=== PATIENT | male | born 1950 | race Caucasian/White ===

== ENCOUNTER → 2021-08-25 13:54 | Outpatient (BNVA) | payer SELFPAY | PROVIDERS: PCP Nurse Practitioner Family; Visit Provider Nurse Practitioner Family ==

== ENCOUNTER → 2021-12-01 10:55 | Outpatient (BNVA) | payer MEDICARE, OTHER, SELFPAY | PROVIDERS: PCP Nurse Practitioner Family; Visit Provider Nurse Practitioner Family | DX: G20 Parkinson's disease (principal); R44.3 Hallucinations, unspecified | CPT/HCPCS: 99212 ==

== ENCOUNTER → 2022-03-07 11:27 | Outpatient (BNVA) | payer MEDICARE, OTHER, SELFPAY | PROVIDERS: PCP Nurse Practitioner Family; Visit Provider Nurse Practitioner Family | DX: G20 Parkinson's disease (principal); R44.3 Hallucinations, unspecified; Z79.82 Long term (current) use of aspirin; Z79.899 Other long term (current) drug therapy | CPT/HCPCS: 99212 ==

== ENCOUNTER → 2022-07-27 12:52 | Outpatient (BNVA) | payer MEDICARE, OTHER, SELFPAY | PROVIDERS: PCP Nurse Practitioner Family; Visit Provider Nurse Practitioner Family | DX: G20 Parkinson's disease (principal); R44.3 Hallucinations, unspecified; G45.9 Transient cerebral ischemic attack, unspecified | CPT/HCPCS: 99212 ==

== ENCOUNTER → 2022-11-16 12:58 | Outpatient (BNVA) | payer MEDICARE, OTHER, SELFPAY | PROVIDERS: PCP Nurse Practitioner Family; Visit Provider Nurse Practitioner Family | DX: G20 Parkinson's disease (principal); N39.0 Urinary tract infection, site not specified; R55 Syncope and collapse; R45.1 Restlessness and agitation | CPT/HCPCS: 99212 ==

== ENCOUNTER 2022-12-07 13:00 | Outpatient (REF) | payer MEDICARE, OTHER, SELFPAY ==
--- NOTE | 2022-12-07 13:04 | EEG_ITS ---
This is a 16 channel EEG with an EKG lead. The patient is reported awake during the tracing. Background EEG rhythm is 6-8 hertz, 5-30 microvolt posteriorly and lower amplitude fast anteriorly. Photic stimulation does not produce any significant driving. Hypoventilation is not performed. Cardiac lead does not reveal any significant abnormality. At least 1 left hemispheric sharp wave was noted. IMPRESSION: Abnormal EEG suggestive of left hemispheric irritability, which suggested a tendency for partial or complex partial seizure disorder. MD ARACELY Hernandez/TRACEY / [id number]
== END 2022-12-07 13:01 | disposition home or self-care (01) ==
LOC: HO.NEURO 13:00
PROVIDERS: PCP Nurse Practitioner Family; Visit Provider Nurse Practitioner Family
DX: R55 Syncope and collapse (principal); G45.9 Transient cerebral ischemic attack, unspecified
CPT/HCPCS: 95816

== ENCOUNTER 2023-02-20 12:57 | Outpatient (AMB) | payer MEDICARE, OTHER, SELFPAY ==
[2023-02-20 12:59] VITALS: BP 112/76; PULSE 77; O2SAT 98; BMI 25.0
--- NOTE | 2023-02-20 12:59 | MHC.OFFVIS ---
Intake Vital Signs 02/20/23 12:59 Height 6 ft 1 in Weight 189 lb 8 oz BMI 25.0 BP 112/76 Blood Pressure Location Rt brachial Position Sitting Pulse 77 Pulse Source Pulse Oximeter Pulse Oximetry (%) 98 Oxygen Delivery Method Room Air Intake Visit Reasons: 3m follow up Parkinson's - LVM Intake Note: Pt presents as a 3 month f/u for Parkinsons. pt's states he's sleeping more, and just the normal decline. Extended Day Teacher Required: No Allergies No Known Allergies Allergy (Verified 02/20/23 13:05) Medication List - Last Reconciled 02/20/23 by ANETA Zhang ascorbate calcium (vitamin C) 500 mg PO DAILY aspirin 325 mg PO DAILY atorvastatin 20 mg PO DAILY carbidopa-levodopa 23.75-95 mg ER (Rytary) 3 caps PO TID 90 days cholecalciferol (vitamin D3) 50 mcg PO DAILY clonazepam 0.5 mg PO BEDTIME PRN d-mannose 1,000 mg PO BID docusate sodium (Stool Softener) 100 mg PO BID lactulose 10 - 20 grams (15 - 30 mL) PO BEDTIME PRN 30 days melatonin 7.5 mg PO memantine 28 mg PO DAILY 90 days nitrofurantoin macrocrystal 100 mg PO DAILY pantoprazole 40 mg PO DAILY pimavanserin (Nuplazid) 34 mg PO DAILY 30 days polyethylene glycol 3350 (Miralax) 17 grams PO DAILY quetiapine (Seroquel) 25 mg PO BID 90 days trazodone 100 mg PO DAILY HPI HPI Comments History of Present Illness Details 72-yr-old male presents for f/u visit, accompanied by his , who provides most of history. Pt had an interval hospital admission- following an episode of brief syncope a/w eyes rolling back- thought to be d/t orthostatic hypotension. Pt's notes that these episodes started after pt started Tamsulosin- and this was stopped in the hospital. He has not had any episodes since. He has also been treated for several UTIs- extended course of keflex, then cipro, now nitrofurantoin for UTI prevention. reports that PVR was normal- even off the tamsulosin. Aoril 2021 IMPRESSION:? Abnormal EEG suggestive of left hemispheric irritability, which suggested a tendency for partial or complex partial seizure disorder. ADL's: Needs max assist Swallowing: No issues, not eating as much Cough: None Drooling: None Orthostatic lightheadedness: None since hospitalization. He is drinking a bit better, Constipation: Has been having more diarhea since taking the ABT- but more constipated today. Freezing: Stiffness: Stiff Tremor: Not much Falls: He had an episode where he tried to get up on his own, and found him sitting next to his bed. Now has 2 half rails. Hallucinations: More constant- pt is less bothered by them but sometimes they can be bothersome- such as 30 people being in the BR w/ him. Memory: Poor Sleep: He is sleeping ok w/ quetiapine 1.5 tabs qhs. Exercise: Walking as able in around the house. [facility] Medical History GI bleed Hernia Surgical History History of appendectomy History of knee replacement Family History Father Heart disease Parkinsons Mother Cancer Social History (Updated 02/20/23 @ 13:09 by Britt Benavides CMA) Alcohol intake: current Alcohol intake frequency: former alcohol drinker Patient Tobacco Use Status: Never used Tobacco Review of Systems Const All systems reviewed & are unremarkable except as noted in HPI and below Physical Exam Vital Signs: Last Vital Signs Pulse 77 02/20/23 12:59 BP 112/76 02/20/23 12:59 Pulse Ox 98 02/20/23 12:59 Oxygen Delivery Method Room Air 02/20/23 12:59 BMI result Body Mass Index 25.0 Const General: cooperative and no acute distress Resp Effort & Inspection: normal respiratory effort and able to speak in complete sentences Neuro Other: Expression:? Decreased expression and blink Voice:? Soft voice Tremor:? No tremor noted Dyskinesia:? None observed Movement:? BUE and BLE FFM and foot taps bradykinetic- more so on left, more difficulty follwoing instructions for LUE.. Tone: BUE rigidity. Gait:? Pt sitting w/ slight stoop in w/c Psych:? Pleasant affect, cooperative. Cognition: Alert, responsive, confabulation. Assessment & Plan Assessment & Plan (1) Parkinson disease: Code(s): G20 - Parkinson's disease (2) Hallucinations: Code(s): R44.3 - Hallucinations, unspecified (3) Syncope: Code(s): R55 - Syncope and collapse Plan Reviewed EEG- suggestive of left temporal irritability. However, pt has not had any further syncopal episodes since stopping Tamsulosin. Thus I suspect OH is the likely cause. Continue increased fluids. Consider BP support or AED if episodes reoccur. Continue Rytary 23.75-95mg- 3 caps qam,?2pm, HS. Continue Trazodone 100-150mg qhs. Continue Nuplazid 34mg qd. Continue Quetiapine 25 mg bid and 12.5mg qd prn. Continue Namneda XR 28mg qd. Continue Colace and Miralax prn. Lactulose prn no BM in > 3 days. Continue ASA. Continue socialization, cognitively stimulating activities. Continue supportive care. ? f/u in 3 months or sooner per new/worsening s/s. Medications: New d-mannose 1,000 mg orally daily; Coding Level of Care Code Est Pt Level 4 (29090) Diagnoses Parkinson disease G20 Hallucinations R44.3 Syncope R55
== END 2023-02-20 14:02 | disposition home or self-care (01) ==
LOC: HO.HSMS 12:57
PROVIDERS: PCP Nurse Practitioner Family; Visit Provider Nurse Practitioner Family
DX: G20 Parkinson's disease (principal); R44.3 Hallucinations, unspecified; R55 Syncope and collapse
CPT/HCPCS: 99214

== ENCOUNTER → 2023-02-20 12:57 | Outpatient (BNVA) | payer MEDICARE, OTHER, SELFPAY | PROVIDERS: PCP Nurse Practitioner Family; Visit Provider Nurse Practitioner Family | DX: G20 Parkinson's disease (principal); R44.3 Hallucinations, unspecified; R55 Syncope and collapse | CPT/HCPCS: 99212 ==

== ENCOUNTER 2023-05-31 13:25 | Outpatient (AMB) | payer MEDICARE, OTHER, SELFPAY ==
--- NOTE | 2023-05-31 13:29 | A.OFFVIS_ITS ---
Intake Vital Signs 05/31/23 13:31 Height 6 ft 1 in Weight 183 lb BMI 24.1 BP 98/60 Blood Pressure Location Lt brachial Position Sitting Pulse Source Pulse Oximeter Pulse Oximetry (%) 94 Oxygen Delivery Method Room Air Intake Visit Reasons: 3m follow up Parkinson's/confirmed Intake Note: Patient presents today for a 3 month follow up for Hallucination. Patient is here with his Violeta Garibay and is the one answering questions. Patient's states there has been no change. Patient is having PT and OT at home. Allergies No Known Allergies Allergy (Verified 05/31/23 13:38) HPI HPI Comments History of Present Illness Details 72-yr-old male presents for f/u visit, a ccompanied by . No interval UTIs- on ABT prophylaxis. ADL's: Needing more assist Swallowing: Sometimes may cough after taking a drink Drooling: None Orthostatic lightheadedness: He is having less OH s/s since starting Midodrine 2.5mg qam, and will increase to 5mg qam today- PCP is managing. Constipation: More prone for looser stools Freezing: Sometimes Stiffness: Some stiffness Tremor: At times hand tremors may be increased Falls: No interval falls Hallucinations: Continues Memory: Poor Sleep: Sleeping ok. Exercise: Currently working w/ PT and OT. [facility] Medical History GI bleed Hernia Surgical History History of appendectomy History of knee replacement Family History Father Heart disease Parkinsons Mother Cancer Social History Alcohol intake: current Alcohol intake frequency: former alcohol drinker Patient Tobacco Use Status: Never used Tobacco Review of Systems Const All systems reviewed & are unremarkable except as noted in HPI and below Physical Exam Vital Signs: Last Vital Signs BP 98/60 05/31/23 13:31 Pulse Ox 94 05/31/23 13:31 Oxygen Delivery Method Room Air 05/31/23 13:31 BMI result Body Mass Index 24.1 Const General: cooperative and no acute distress Resp Effort & Inspection: normal respiratory effort and able to speak in complete sentences Neuro Other: Expression:? Decreased expression and blink Voice:? Soft voice Tremor:? No tremor noted Dyskinesia:? None observed Movement:? BUE and BLE FFM and foot taps bradykinetic Tone: BUE rigidity. Gait:? Pt sitting in w/c- less stoop today Psych:? Pleasant affect, cooperative. Cognition: Alert, responsive, confabulation. Assessment & Plan Assessment & Plan (1) Parkinson's disease without dyskinesia: Code(s): G20.A1 - Parkinson's disease without dyskinesia, without mention of fluctuations (2) Hallucinations: Code(s): R44.3 - Hallucinations, unspecified (3) Syncope: Code(s): R55 - Syncope and collapse Plan For OH s/s: Previous EEG- suggestive of left temporal irritability. However, pt has not had any further syncopal episodes since stopping Tamsulosin. Thus I suspect OH is the likely cause. Continue increased fluids. Continue Midodrine 2.5-5mg qam. Continue to sleep w/ HOB elevated. Continue to monitor BP. Consider AED if episodes reoccur. Continue Rytary 23.75-95mg- 3 caps qam,?2pm, HS. Continue Trazodone 100-150mg qhs. Continue Nuplazid 34mg qd. Continue Quetiapine 25 mg bid and 12.5mg qd prn. Continue Namenda XR 28mg qd. Continue Colace and Miralax prn. Lactulose prn no BM in > 3 days. Continue ASA. Continue socialization, cognitively stimulating activities. Continue PT/OT exercises. Pt would benefit from using a Platform U-step Neuro Walker as he is at significant risk of falling using a standard walker, and this risk would be lessened by use of a Platform U-step Neuro Walker w/ laser. Continue supportive care. ? f/u in 3 months or sooner per new/worsening s/s. Coding Level of Care Code Est Pt Level 4 (57600) Diagnoses Parkinson's disease without dyskinesia G20.A1 Hallucinations R44.3 Syncope R55
[2023-05-31 13:31] VITALS: BP 98/60; O2SAT 94; BMI 24.1
== END 2023-05-31 14:36 | disposition home or self-care (01) ==
PROVIDERS: PCP Nurse Practitioner Family; Visit Provider Nurse Practitioner Family
DX: G20.A1 Parkinson's disease without dyskinesia, without mention of fluctuations (principal); R44.3 Hallucinations, unspecified; R55 Syncope and collapse
CPT/HCPCS: 99214

== ENCOUNTER → 2023-05-31 13:25 | Outpatient (BNVA) | payer MEDICARE, OTHER, SELFPAY | PROVIDERS: PCP Nurse Practitioner Family; Visit Provider Nurse Practitioner Family | DX: G20.A1 Parkinson's disease without dyskinesia, without mention of fluctuations (principal); R44.3 Hallucinations, unspecified; R55 Syncope and collapse | CPT/HCPCS: 99212 ==

== ENCOUNTER 2023-07-24 11:36 | Outpatient (AMB) | payer MEDICARE, OTHER, SELFPAY ==
[2023-07-24 11:43] VITALS: BP 120/60; PULSE 67; BMI 24.7
--- NOTE | 2023-07-24 11:43 | A.OFFVIS_ITS ---
Intake Vital Signs 07/24/23 11:43 Height 6 ft 1 in Weight 187 lb BMI 24.7 BP 120/60 Blood Pressure Location Lt brachial Position Sitting Pulse 67 Intake Visit Reasons: CLIENT RELATIONSHIP MANAGER/ Albertina Dickens/ Erasmo PCP/abn ekg Intake Note: New patient abnormal ekg orthostatic HTN unable to do orthostatic bp unable to stand Buttonhole Maker Hand Required: No Allergies No Known Allergies Allergy (Verified 05/31/23 13:38) Medication List - Last Reconciled 07/24/23 by Too Palmer MD ascorbate calcium (vitamin C) 500 mg PO DAILY aspirin 325 mg PO DAILY atorvastatin 20 mg PO DAILY carbidopa-levodopa 23.75-95 mg ER (Rytary) 3 caps PO TID 90 days cholecalciferol (vitamin D3) 50 mcg PO DAILY clonazepam 0.5 mg PO BEDTIME PRN d-mannose 1,000 mg PO BID docusate sodium (Stool Softener) 100 mg PO BID droxidopa 100 mg PO TID 30 days lactulose 10 - 20 grams (15 - 30 mL) PO BEDTIME PRN 30 days melatonin 7.5 mg PO memantine 28 mg PO DAILY 90 days midodrine 5 mg PO ONCE nitrofurantoin macrocrystal 100 mg PO DAILY pantoprazole 40 mg PO DAILY pimavanserin (Nuplazid) 34 mg PO DAILY 30 days polyethylene glycol 3350 (Miralax) 17 grams PO DAILY quetiapine (Seroquel) 25 mg PO BID 90 days trazodone 100 mg PO DAILY HPI HPI Comments History of Present Illness Details Thank you for referring Omi in cardiology consultation today for abnormal EKG. EKG shows right bundle-branch block and with ST T wave abnormalities which could suggest re pros a escobedo abnormality related to LVH. This right bundle-branch block was noted on EKG from 2019 as well and is not a new finding. Patient also has advanced Parkinson's disease with dementia. He has some behavioral disorder. Patient is accompanied by his as well as his daughter. History is mostly provided with the who has been taking care of the patient closely. Patient 2018 was admitted to [facility] with TIA and that time workup at shown mild carotid disease. He subsequent echocardiogram and subsequent had a implantable loop recorder placement which was in him for about a year and half as per the . He was subsequently diagnosed with paroxysmal atrial fibrillation and a decision was made not to put him on oral anticoagulation therapy due to fear of risk of falls. Patient is on full-dose aspirin therapy. Patient subsequently comes for follow-up today. Has developed significant orthostatic hypertension and syncopal episodes related to it. notices that sometimes when he is upright or changes position he would flutter his eyes and would have a blank stare in she would know that he was about to pass out. She would then try to sit back down on a recliner and/or push against the wall to clinic slight down to the floor. However despite the sometimes he has passed out. He had another episode of TIA like event where noticed that the right side of the face was drooping and brought him to [facility], workup there was negative. He has also had EEG done which shows a irritable focus. He has not had any seizure-like activity as per the . He is currently on midodrine twice a day for his orthostatic hypertension. Noted extensive blood pressure recording done by the which has shown patient has slightly elevated blood pressure when he is in bed and blood pressure can drop up to 50 points when he is in a recliner. Blood pressure is highly variable. Patient has been trying to increase fluid intake. There is no clear heart failure symptoms. [facility] Medical History GI bleed Hernia Surgical History History of appendectomy History of knee replacement Family History Father Heart disease Parkinsons Mother Cancer Social History Alcohol intake: current Alcohol intake frequency: former alcohol drinker Patient Tobacco Use Status: Never used Tobacco Review of Systems Const Denies chills, Denies daytime sleepiness, Denies fatigue, Denies fever(s), Denies frequent falls, Denies poor appetite, Denies snoring, Denies stops breathing during sleep, Denies weakness, Denies weight gain and Denies weight loss Eyes Denies loss of vision ENT Denies dizziness and Denies hearing loss Card Denies chest pain, Denies claudication, Denies leg edema, Denies lightheadedness, Denies palpitations, Denies dyspnea, Denies dyspnea on exertion and Denies orthopnea Resp Denies cough, Denies excessive phlegm production, Denies dyspnea, Denies dyspnea on exertion, Denies snoring and Denies wheezing GI Denies abdominal pain, Denies hematochezia, Denies change in bowel habits, Denies nausea and Denies vomiting Denies dysuria and Denies urinary frequency Musc Denies arthralgias, Denies muscle weakness, Denies numbness and Denies other (frequent falls) Skin/Breast Denies nail changes and Denies rash Neuro Denies Abnormal speech present, Denies dizziness, Denies frequent falls, Denies loss of vision, Denies memory loss, Denies numbness and Denies weakness Psych Denies depression and Denies memory loss Endo Denies fatigue and Denies palpitations John/Lymph Reports easy bruising and Reports other (anemia) Aller/Immun Denies wheezing Physical Exam Vital Signs: Last Vital Signs Pulse 67 07/24/23 11:43 BP 120/60 07/24/23 11:43 BMI result Body Mass Index 24.7 Const General: cooperative, comfortable, no acute distress, alert and awake Nutritional Appearance: average body habitus Limitations: wheelchair HEENT Head: Yes normocephalic and Yes atraumatic Neck Neck: Yes trachea midline, Yes supple and Yes no JVD Resp Effort & Inspection: normal respiratory effort Auscultation: clear to auscultation bilaterally Cardio Jugular venous distension: no JVD Palpation: normal PMI Rate: regular rate Rhythm: regular rhythm Heart sounds: S1 normal heart sound present, S2 normal heart sound present, no click, no gallops, no murmurs and no rubs GI Auscultation: normal bowel sounds Skin General skin exam: no rashes or lesions noted Neuro General: moves all extremities Speech: No Abnormal speech present Extrem General: Yes no clubbing, cyanosis or edema Office Procedures EKG Details: EKG shows normal sinus rhythm with right bundle-branch block with T-wave changes in inferior lead which which suggests repolarization abnormality [id number], Complete Assessment & Plan Assessment & Plan (1) Abnormal electrocardiogram [ECG] [EKG]: Code(s): R94.31 - Abnormal electrocardiogram [ECG] [EKG] Plan: Patient with prior history of right bundle-branch block as well as persistent right bundle-branch block on EKG today with multiple risk factors. Would suggest an echocardiogram to assess for LV systolic and diastolic function as well as evaluate for LVH. 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 He does have significant labile blood pressure and has evidence of orthostatic syncope in the past. The tends to recognize symptoms when he is having these episodes and tries to correct position. Advise if possible to try to lay him down. However she says that this is not always possible. He is currently on midodrine therapy in this can be maximized but there is a plan to switch him to Northera, which is medication studied for this particular condition and agree with it. However there is likelihood of having supine hypertension with this. Advise to continue monitor blood pressure aggressively especially supine blood pressure. If the blood pressure at nighttime when supine a elevated consider adding short-acting medicine such as Isordil or hydralazine prior to sleep to reduce risk of supine hypertension. Maintain adequate oral hydration. Orthostatic precautions discussed. Patient is already sleeping in a semi reclining position in the hosp ital bed at home. This is a very difficult clinical situation treatment was discussed with the and they understand and agree. (3) Paroxysmal atrial fibrillation: Code(s): I48.0 - Paroxysmal atrial fibrillation Plan: reports history of paroxysmal atrial fibrillation, based on implantable loop recorder finding. Will review the findings. If he in fact has atrial fibrillation should consider switching him to oral anticoagulation therapy with Eliquis. The benefits and risks were discussed with the . They will discuss this with you as well as the PCP. Will follow in the clinic if need be. Thank you for allowing me to partake in his care Orders: Orders CA echo transthoracic complete Today R94.31 - Abnormal electrocardiogram [ECG] [EKG] Coding Level of Care Code New Pt Level 4 (54976) Diagnoses Abnormal electrocardiogram [ECG] [EKG] R94.31 Orthostatic hypotension I95.1 Paroxysmal atrial fibrillation I48.0 CPT Codes EKG - CPT: 35521-[id number], Complete ([id number])
== END 2023-07-24 12:47 | disposition home or self-care (01) ==
PROVIDERS: PCP Nurse Practitioner Family; Visit Provider Internal Medicine Cardiovascular Disease
DX: R94.31 Abnormal electrocardiogram [ECG] [EKG] (principal); I95.1 Orthostatic hypotension; I48.0 Paroxysmal atrial fibrillation
CPT/HCPCS: 93010; 99204

== ENCOUNTER → 2023-07-24 11:36 | Outpatient (BNVA) | payer MEDICARE, OTHER, SELFPAY | PROVIDERS: PCP Nurse Practitioner Family; Visit Provider Internal Medicine Cardiovascular Disease | DX: R94.31 Abnormal electrocardiogram [ECG] [EKG] (principal); I95.1 Orthostatic hypotension; I48.0 Paroxysmal atrial fibrillation | CPT/HCPCS: 93005; 99202 ==

== ENCOUNTER → 2023-08-16 13:01 | Outpatient (REF) | payer MEDICARE, OTHER, SELFPAY ==
--- NOTE | 2023-08-16 13:05 | HM_ITS ---
* Total monitoring time 3 days. * Underlying rhythm is sinus with an average rate of 68/Min range 51 to 84/Min. * Occasional supraventricular ectopy burden of 1.8%. * Rare ventricular ectopy. * No significant pauses or AV blocks. * No patient markers or events in diary. MTDD
== END ==
LOC: HO.CARD 13:01
PROVIDERS: Visit Provider Nurse Practitioner Family
DX: I45.10 Unspecified right bundle-branch block (principal); R94.31 Abnormal electrocardiogram [ECG] [EKG]; R55 Syncope and collapse; G20.A1 Parkinson's disease without dyskinesia, without mention of fluctuations; R41.82 Altered mental status, unspecified; Z86.73 Personal history of transient ischemic attack (TIA), and cerebral infarction without residual deficits
CPT/HCPCS: 70551; 93242; 93306

== ENCOUNTER → 2023-08-16 13:05 | Outpatient (BNV) | payer MEDICARE, OTHER, SELFPAY | PROVIDERS: Visit Provider Internal Medicine Cardiovascular Disease | DX: I47.10 Supraventricular tachycardia, unspecified (principal) | CPT/HCPCS: 93244; 93306 ==

== ENCOUNTER 2023-09-07 15:16 | Outpatient (AMB) | payer MEDICARE, OTHER, SELFPAY ==
--- NOTE | 2023-09-07 15:39 | A.OFFVIS_ITS ---
Intake Intake Visit Reasons: 3 mnts f/u for Parkinson's-Confirmed Intake Note: Pt presents for 3 month follow up for Parkinson's. Wax Specialist Required: No Allergies No Known Allergies Allergy (Verified 09/07/23 15:40) HPI HPI Comments History of Present Illness Details 72-yr-old male presents for f/u visit. Accompanied by his and daughter. Pt's reports pt has active s/s UTI- odorous urine, some increased confusion. She started him on the prn Cipro 500mg bid x's 3 days per urology. 08/16/23, MR/MR head/brain wo con IMPRESSION: No acute infarction. Mild generalized cerebral volume loss and chronic microvascular ischemic change. Partially visualized nonspecific lesion in the left parotid gland measuring up to 1.1 cm. A primary parotid neoplasm cannot be excluded and clinical correlation/attention on follow-up is recommended. He has stopped midodrine. He has resumed Droxidopa now on 200mg/day- plans to increase to 300mg/day BP has been runnin/50-140/80s sitting 150-160/70-80s in bed Patient requires maximum assist for most ADLs. He lives with . He has not been complaining of lightheadedness. No near syncopal episodes. He is still having nocturnal episodes of staring off. The shares video 1 of these episodes- patient appear stiff, mild eye movements- eyes moving up and back. He does have hallucinations- not bothersome. He can be stiff. Patient did receive, but unfortunately did not tolerate the Platform U-step Neur o Walker. [facility] Medical History (Updated 08/29/23 @ 16:53 by ANETA Zhang) Parkinson disease GI bleed Hernia Surgical History History of appendectomy History of knee replacement Family History Father Heart disease Parkinsons Mother Cancer Social History Alcohol intake: current Alcohol intake frequency: former alcohol drinker Patient Tobacco Use Status: Never used Tobacco Review of Systems Const All systems reviewed & are unremarkable except as noted in HPI and below Physical Exam Const General: cooperative and no acute distress Resp Effort & Inspection: normal respiratory effort and able to speak in complete sentences Neuro Other: General: Alert, oriented to family, responding appropriately with simple answers Expression:? Decreased expression and blink Voice:? Soft voice Tremor:? No tremor noted Dyskinesia:? None observed Movement:? BUE and BLE FFM and foot taps bradykinetic Tone: BUE rigidity. Gait:? Pt sitting in w/c Psych:? Pleasant affect, cooperative. Assessment & Plan Assessment & Plan (1) Parkinson's disease without dyskinesia: Code(s): G20.A1 - Parkinson's disease without dyskinesia, without mention of fluctuations (2) Hallucinations: Code(s): R44.3 - Hallucinations, unspecified (3) Orthostatic hypotension: Code(s): I95.1 - Orthostatic hypotension Plan Reviewed brain MRI: Mild generalized cerebral volume loss and chronic microvascular ischemic change. Partially visualized nonspecific lesion in the left parotid gland measuring up to 1.1 cm. We did order a follow-up left parotid gland biopsy and ultrasound. For nocturnal staring off episodes and syncope: Previous EEG- suggestive of left temporal irritability. Patient no longer having any near-syncope or syncopal episodes, since stopping tamsulosin and starting BP supportive medications. Likely these episodes were due to orthostatic hypotension. However it is possible that his nocturnal episodes of staring off, are due to epileptic activity. We could consider trialing Gabapentin (and weaning off trazodone) in follow-up. For OH s/s: Continue increased fluids. Continue to hold Midodrine 2.5-5mg qam. Continue to increase Droxidopa. Continue to sleep w/ HOB elevated. Continue to monitor BP- especially 1st morning BP. If 1st morning BP increases, consider adding an antihypertensive agent at bedtime, but would like OH and BP s/s to be better controlled beofre making any further med adjustments. For Parkinson's: Continue Rytary 23.75-95mg- 3 caps qam,?2pm, HS. Continue Trazodone 100-150mg qhs. Continue Nuplazid 34mg qd. Continue Quetiapine 25 mg bid and 12.5mg qd prn. Continue Namenda XR 28mg qd. Continue Colace and Miralax prn. Lactulose prn no BM in > 3 days. Continue ASA. Continue socialization, cognitively stimulating activities. Continue PT/OT exercises. Continue supportive care. ? f/u in 3 months or sooner per new/worsening s/s. Coding Level of Care Code Est Pt Level 4 (39685) Diagnoses Parkinson's disease without dyskinesia G20.A1 Hallucinations R44.3 Orthostatic hypotension I95.1
== END 2023-09-07 16:12 | disposition home or self-care (01) ==
PROVIDERS: PCP Nurse Practitioner Family; Visit Provider Nurse Practitioner Family
DX: G20.A1 Parkinson's disease without dyskinesia, without mention of fluctuations (principal); R44.3 Hallucinations, unspecified; I95.1 Orthostatic hypotension
CPT/HCPCS: 99214

== ENCOUNTER → 2023-09-07 15:16 | Outpatient (BNVA) | payer MEDICARE, OTHER, SELFPAY | PROVIDERS: PCP Nurse Practitioner Family; Visit Provider Nurse Practitioner Family | DX: G20.A1 Parkinson's disease without dyskinesia, without mention of fluctuations (principal); R44.3 Hallucinations, unspecified; I95.1 Orthostatic hypotension | CPT/HCPCS: 99212 ==

== ENCOUNTER 2023-12-11 12:58 | Outpatient (AMB) | payer MEDICARE, OTHER, SELFPAY ==
[2023-12-11 13:05] VITALS: BP 98/68; PULSE 61; O2SAT 97; BMI 22.0
--- NOTE | 2023-12-11 13:05 | A.OFFVIS_ITS ---
Vital Signs 12/11/23 13:05 Height 6 ft 1 in Weight 167 lb BMI 22.0 BP 98/68 Blood Pressure Location Rt brachial Position Sitting Pulse 61 Pulse Source Pulse Oximeter Pulse Oximetry (%) 97 Oxygen Delivery Method Room Air Intake Visit Reasons: 3-4 mo f/u - Confirmed Intake Note: Patient presents for 3-4 month. Allergies No Known Allergies Allergy (Verified 12/11/23 13:08) Medication List - Last Reconciled 12/11/23 by ANETA Zhang ascorbate calcium (vitamin C) 500 mg PO DAILY aspirin 325 mg PO DAILY atorvastatin 20 mg PO DAILY carbidopa-levodopa 23.75-95 mg ER (Rytary) 3 caps PO TID 90 days cholecalciferol (vitamin D3) 50 mcg PO DAILY clonazepam 0.5 mg PO BEDTIME PRN d-mannose 1,000 mg PO BID docusate sodium (Stool Softener) 100 mg PO BID droxidopa 100 mg PO TID 30 days lactulose 10 - 20 grams (15 - 30 mL) PO BEDTIME PRN 30 days melatonin 7.5 mg PO memantine 28 mg PO DAILY 90 days midodrine 5 mg PO ONCE nitrofurantoin macrocrystal 100 mg PO DAILY pantoprazole 40 mg PO DAILY pimavanserin (Nuplazid) 34 mg PO DAILY 30 days polyethylene glycol 3350 (Miralax) 17 grams PO DAILY quetiapine (Seroquel) 25 mg PO BID 90 days trazodone 100 mg PO DAILY HPI Comments Details: 72-yr-old male presents for f/u visit. Pt is accompanied by and dtr. Pt reports the following interval medical history changes: Pt has had 2 recent hospitalizations 11/15/23 for SOB and PNA. Discharged home on Pudding thick liquids and soft diet. 12/05/23 for hypotension s/p transferring- which feels was exacerbated by dehydration, pt had not been drinking the pudding thick liquids. On 12/06/23, MBS showed aspiration on thin liquids, flash penetration on nectar thick liquids. He has been cleared to drink NTL w/ a straw. He has had an interval 20 lb weight loss. Since being home: Pt states he is now feeling a bit better. His BPs are still quite variable- Laying down in the 10 am 150s/82, later sitting in chair at 12pm 98/68, and here sitting 98/68. He can still have episodes of near syncope. Happened today on the way in here today- after he was assisted from the car into his w/c. The syncope lasts lasts < 1 min, but has lasted 3-4 minutes. He is stiffer overall. Hallucinations are stable Patient's notes the patient is sleeping more, has had nocturnal gasping, snoring. He has a history of sleep apnea, but has not used a PAP device in years. Pt's current PD medication regimen: Droxidopa 100mg bid (9-10am and 2-3pm). Rytary 3 caps- 10am, 2pm, 8pm. He is not taking any midodrine. [facility] Medical History (Updated 12/11/23 @ 13:59 by ANETA Zhang) Parkinson disease GI bleed Hernia Surgical History History of appendectomy History of knee replacement Family History Father Heart disease Parkinsons Mother Cancer Social History Alcohol intake: current Alcohol intake frequency: former alcohol drinker Patient Tobacco Use Status: Never used Tobacco Review of Systems Const All systems reviewed & are unremarkable except as noted in HPI and below Physical Exam Vital Signs: Last Vital Signs Pulse 61 12/11/23 13:05 BP 98/68 12/11/23 13:05 Pulse Ox 97 12/11/23 13:05 Oxygen Delivery Method Room Air 12/11/23 13:05 BMI result Body Mass Index 22.0 Const General: cooperative and no acute distress Resp Effort & Inspection: normal respiratory effort and able to speak in complete sentences Neuro Other: General: Alert, oriented to family. Responses are slower, not always relevant to question asked Expression:? Decreased expression and blink Voice:? Soft voice Tremor:? No tremor noted Dyskinesia:? None observed Movement:? BUE and BLE FFM and foot taps bradykinetic- more difficulty following directions for these tasks Tone: BUE rigidity. Gait:? Pt sitting in w/c Psych:? Pleasant affect, cooperative. Assessment & Plan Assessment & Plan (1) Parkinson's disease without dyskinesia: Code(s): G20.A1 - Parkinson's disease without dyskinesia, without mention of fluctuations Category: Medical (2) Near syncope: Code(s): R55 - Syncope and collapse Category: Medical (3) Snoring: Code(s): R06.83 - Snoring Category: Medical (4) Sleep difficulties: Code(s): G47.9 - Sleep disorder, unspecified Category: Medical (5) Hypersomnia: Code(s): G47.10 - Hypersomnia, unspecified Category: Medical (6) Obstructive sleep apnea: Comment: not on CPAP Code(s): G47.33 - Obstructive sleep apnea (adult) (pediatric) Category: Medical (7) Hallucinations: Code(s): R44.3 - Hallucinations, unspecified Category: Medical Plan Follow-up on status of left parotid gland biopsy and ultrasound. Pt advised to undergo HST to assess status of BASILIA, snoring, hypersomnia, and assess for nocturnal hypoxemia. ? For nocturnal staring off episodes and syncope: Previous EEG- suggestive of left temporal irritability. Monitor for nocturnal episodes of staring off, are due to epileptic activity. We could consider trialing Gabapentin (and weaning off trazodone) in follow-up. ? For OH s/s: Continue increased fluids. Continue to hold Midodrine 2.5-5mg qam. Increase Droxidopa from 100mg bid to 200mg tid. Continue to sleep w/ HOB elevated. Continue to monitor BP- especially 1st morning BP. If 1st morning BP increases, consider adding an antihypertensive agent at bedtime, but would like OH and BP s/s to be better controlled before making any further med adjustments. ? For Parkinson's: Increase Rytary 23.75-95mg- from 3 caps qam,?2pm, HS to 3 caps QID- in hopes this reduces bradykinesia and bradyphrenia and dysphagia. Continue Trazodone 100-150mg qhs. Continue Nuplazid 34mg qd. Continue Quetiapine 25 mg bid and 12.5mg qd prn. Continue Namenda XR 28mg qd. Continue Colace and Miralax prn. Lactulose prn no BM in > 3 days. Continue ASA. Continue socialization, cognitively stimulating activities. Continue nectar thick liquids. Encourage good oral hygiene, to reduce risk of aspiration pneumonias. Continue PT/OT exercises. Continue supportive care. ? f/u in 3-6 months or sooner per new/worsening s/s. Orders: Orders RT home sleep study Today G47.10 - Hypersomnia, unspecified, G47.33 - Obstructive sleep apnea (adult) (pediatric), G47.9 - Sleep disorder, unspecified, R06.83 - Snoring Medications: Changed From droxidopa give consistently with OR without food, upon rising, at midday, late PM/at least 3hrs before bedtime 100 mg PO TID 30 days 90 caps 3RF To droxidopa give consistently with OR without food, upon rising, at midday, late PM/at least 3hrs before bedtime 200 mg (2 x 100 mg) PO TID 180 caps 6RF 30 days From carbidopa-levodopa 23.75-95 mg ER (Rytary) 3 caps PO TID 90 days 810 caps 6RF To carbidopa-levodopa 23.75-95 mg ER (Rytary) 3 caps PO QID 1,080 caps 6RF 90 days Scribe Plan - Not visible on output: Discussed importance of regular physical activity for management of PD s/s, such as walking, cycling, boxing. Discussed benefits of dopaminergic therapies, such as reduced tremor and improved motor symptoms. Discussed potential adverse effects of dopaminergic therapies, including but not limited to nause/GI upset, orthostatic lightheadedness, dyskineisas, sleepiness, hallucinations. Pt is advised to establish care with a environmental compliance engineer due to slight increase risk of melanoma seen in patient's with Parkinson's disease. Coding Level of Care Code Est Pt Level 4 (41023) Diagnoses Parkinson's disease without dyskinesia G20.A1 Near syncope R55 Snoring R06.83 Sleep difficulties G47.9 Hypersomnia G47.10 Obstructive sleep apnea G47.33 Hallucinations R44.3
== END 2023-12-11 14:05 | disposition home or self-care (01) ==
PROVIDERS: PCP Nurse Practitioner Family; Visit Provider Nurse Practitioner Family
DX: G20.A1 Parkinson's disease without dyskinesia, without mention of fluctuations (principal); R55 Syncope and collapse; R06.83 Snoring; G47.9 Sleep disorder, unspecified; G47.10 Hypersomnia, unspecified; G47.33 Obstructive sleep apnea (adult) (pediatric); R44.3 Hallucinations, unspecified
CPT/HCPCS: 99214

== ENCOUNTER → 2023-12-11 12:58 | Outpatient (BNVA) | payer MEDICARE, OTHER, SELFPAY | PROVIDERS: PCP Nurse Practitioner Family; Visit Provider Nurse Practitioner Family | DX: G20.A1 Parkinson's disease without dyskinesia, without mention of fluctuations (principal); G47.10 Hypersomnia, unspecified; G47.33 Obstructive sleep apnea (adult) (pediatric); R55 Syncope and collapse; R06.83 Snoring; R44.3 Hallucinations, unspecified | CPT/HCPCS: 99212 ==